=== PATIENT | male | born 2000 | race Two or more races ===

== ENCOUNTER → 2024-12-02 21:53 | Emergency (ER) | payer OTHER ==
[2024-12-02 21:57] VITALS: BP 124/88; PULSE 82; RESP 16; TEMP 97.7; O2SAT 97
== END | disposition left against medical advice (07) ==
LOC: ER 21:53
DX: S61.217A Laceration without foreign body of left little finger without damage to nail, initial encounter (principal); Z53.21 Procedure and treatment not carried out due to patient leaving prior to being seen by health care provider; X58.XXXA Exposure to other specified factors, initial encounter; Y93.89 Activity, other specified; Y92.89 Other specified places as the place of occurrence of the external cause; Y99.8 Other external cause status